=== PATIENT | male | born 1995 | race Caucasian/White ===

== ENCOUNTER 2024-02-04 10:39 | Emergency (ER) | payer BC, MEDICAID ==
[~2024-02-04] VITALS: Ht 165.1 cm; Wt 63.0 kg
[2024-02-04] MEDS: ONDANSETRON HCL 4MG/2ML INJ IV ONE (14:25)
[2024-02-04] MEDS: KETAMINE HCL 50 MG/ML 10ML IV ONE (14:36)
[2024-02-04 14:54] VITALS: O2SAT 99
[2024-02-04] MEDS: PROPOFOL 200MG/20ML VIAL IV PRN (15:17)
[2024-02-04 16:02] VITALS: BP 135/77; PULSE 68; RESP 16; TEMP 98.3
== END 2024-02-04 18:30 | disposition home or self-care (01) ==
LOC: ER 11:12
DX: S43.004A Unspecified dislocation of right shoulder joint, initial encounter (principal); X58.XXXA Exposure to other specified factors, initial encounter; Y93.89 Activity, other specified; Y92.89 Other specified places as the place of occurrence of the external cause; Y99.8 Other external cause status
CPT/HCPCS: 73030; 23650; 96374; 99152; 99285; J3490; J2405; J2704; Z7610 ×6; A4565